=== PATIENT | male | born 1960 | race Caucasian/White ===

== ENCOUNTER → 2020-07-13 | Outpatient (CLI) | payer OTHER ==
--- NOTE | 2020-07-16 12:01 | CT ---
Procedure: CT LUNG SCREENING Exam Date: July 13, 2020. Ordering Provider: Ulysses Francis Clinical Indication: LUNG CANCER SCREENING . Smoking cessation x 9 years. 30 pack-year history. This patient meets eligibility criteria for low-dose CT lung cancer screening. Comparison: Chest x-ray February 2019 Technique: Using a multislice scanner, sequential helical axial imaging was obtained in the thorax, 2.5 mm thickness, 2.5 mm separation, from the level of the thoracic inlet through the lung bases without IV contrast. A low dose protocol was utilized for BMI greater than 30: BMI: 37. CTDI: 2.93 mGy. 120. kVp. 75 mA. DLP 112 mGy-cm. 2D sagittal and coronal reconstructed images, 6.0 mm thickness, were obtained. This exam was performed according to our departmental dose optimization program which includes use of automated exposure control, adjustment of the mA and/or kV according to patient size and/or use of iterative reconstruction technique. Nodule measurements under 10 mm are given as mean value of 3 axes diameters. FINDINGS: Lungs and large airways: Minimally dilated blebs in the upper lobe parenchyma and a centrilobular distribution. Volume loss in the left lung appears chronic. Pleural-parenchymal scarring in the inferior lingula and base of the right middle lobe. No abnormal nodules and no masses. No focal infiltrates. Pleura and space: Minimal thickening bilaterally and apical pleural thickening. No acute process. Mediastinum and kahlil: evaluation limited by low dose technique and lack of IV contrast. No abnormal lymph nodes. No dominant soft tissue mass. Heart and great vessels: Coronary artery calcifications left main and LAD. Chest wall, lower neck, axillae: Evaluation also limited by same factors as described above. Normal size axillary nodes. Upper abdomen: Evaluation limited by low-dose technique. No free air or fluid. Stomach distended by food/fluid. Osseous structures: Evaluation limited by low dose MIP technique. Spondylosis and mild scoliosis thoracic spine. Minimal arthrosis in the glenohumeral joints. IMPRESSION: Mild emphysematous changes in the upper lobes. Left lung volume decreased and is most likely chronic. No abnormal nodules and no masses. No acute infiltrate. Minimal pleural thickening.. [facility] Best Practice Recommendations: please see below for Lung RADS category and FOLLOW-UP.* *Lung RADS category Category 1 - No nodule or definitely benign nodules (probability of malignancy less than 1%). Follow-up: Continue annual screening with Low Dose Chest CT in 12 months. Electronically signed by: Felix Garcia MD 07/16/2020 11:[address] [facility]
== END ==
LOC: CT 14:32
PROVIDERS: ATTEND Family Medicine
DX: Z12.2 Encounter for screening for malignant neoplasm of respiratory organs (principal); J43.9 Emphysema, unspecified; J92.9 Pleural plaque without asbestos; Z87.891 Personal history of nicotine dependence